=== PATIENT | female | born 1940 | race Caucasian/White ===

== ENCOUNTER 2018-12-21 09:07 | Emergency (ER) | payer OTHER, BC ==
[2018-12-21 09:13] VITALS: BMI 21.9
--- NOTE | 2018-12-21 09:27 | PDOC ---
History of Present Illness - General Chief Complaint: Nausea/Vomiting Stated Complaint: ABD PAIN/ VOMITING Time Seen by Provider: 12/21/18 09:22 - History of Present Illness Initial Comments: 12/21/18 10:41 78 year old woman with a history of HTN, cholecystectomy and recurrent vomiting who presents with abdominal pain 7x nbnb vomiting since yesterday at 1300. The patient reports she ate lunch, had abdominal pain then proceeded to vomit. She denies any diarrhea, fever, chest pain or shortness of breath. She admits to dysuria but denies any other symptoms. She complains of some weakness but otherwise has no other complaints. ROS GENERAL/CONSTITUTIONAL: No fever or chills. No weakness. CARDIOVASCULAR: No chest pain or shortness of breath RESPIRATORY: No cough, wheezing, or hemoptysis. GASTROINTESTINAL: + nausea, vomiting, No diarrhea or constipation. GENITOURINARY: + dysuria, frequency, or change in urination. MUSCULOSKELETAL: No joint or muscle swelling or pain. No neck or back pain. SKIN: No rash NEUROLOGIC: No headache, vertigo, loss of consciousness, or change in strength/ sensation. PE GENERAL: Awake, alert, and fully oriented, in no acute distress HEAD: No signs of trauma, normocephalic, atraumatic EYES: EOMI, sclera anicteric, conjunctiva clear ENT: oropharynx clear without exudates. Moist mucosa NECK: Normal ROM, supple LUNGS: No distress, speaks full sentences, clear to auscultation bilaterally HEART: Regular rate and rhythm, normal S1 and S2, no murmurs, rubs or gallops, peripheral pulses normal and equal bilaterally. ABDOMEN: Soft, nontender + slight volunatry guarding in lower quadrants, no rebound. No masses EXTREMITIES : Normal inspection, Normal range of motion, no edema. No clubbing or cyanosis. NEUROLOGICAL: Cranial nerves II through XII grossly intact. Normal speech,no focal sensorimotor deficits SKIN: Warm, Dry, normal turgor, no rashes or lesions noted MDM DDX including but not limited to: recurrent vomiting r/o pancreatits r/o cholelithiasis ED Course: labs largely wnl CTAP with mild fatty liver changes and with 3mm nodule in L lung patient informed of all lab results patient given GI referral and plan to f.u pcp f/u and d/c Matilde Correa, PGY2 Emergency Medicine Past History - Past Medical History Allergies/Adverse Reactions: Allergies Allergy/AdvReac Type Severity Reaction Status Date / Time No Known Allergies Allergy Verified 09/10/15 08:35 Home Medications: Ambulatory Orders Ondansetron [Zofran -] 4 mg PO BID #10 tablet 12/21/18 COPD: No GI Disorders: Yes (ACID REFLUX) HTN: Yes - Surgical History Cholecystectomy: Yes - Immunization History Immunization Up to Date: No - Psycho Social/Smoking Cessation Hx Smoking History: Never smoked Have you smoked in the past 12 months: No Information on smoking cessation initiated: No Hx Alcohol Use: No Drug/Substance Use Hx: No Substance Use Type: None *Physical Exam - Vital Signs Last Vital Signs Temp Pulse Resp BP Pulse Ox 98.0 F 82 16 161/80 100 12/21/18 09:10 12/21/18 09:10 12/21/18 09:10 12/21/18 09:10 12/21/18 09:10 ED Treatment Course - LABORATORY CBC & Chemistry Diagram: 12/21/18 10:00 12/21/18 10:00 Discharge - Discharge Information Problems reviewed: Yes Clinical Impression/Diagnosis: Gastritis, Vomiting Condition: Stable Disposition: HOME - Admission No - Additional Discharge Information Prescriptions: Ondansetron [Zofran -] 4 mg PO BID #10 tablet - Follow up/Referral Referrals: Suleiman Melendrez MD [Primary Care Provider] - Niels Ferrara MD [Staff Physician] - - Patient Discharge Instructions Patient Printed Discharge Instructions: DI for Abdominal Pain-Adult, DI for Vomiting -- Adult Additional Instructions: You were seen in the ER for complaints of vomiting Your labwork and imaging showed some fatty changes in the liver and a small 2mm nodule in the L lung You have a referral for GI and should follow up within 1 week. You should also follow up with your Family Doctor within 1 week. You have a prescription for Zofran and should take as prescribed. Return to the ED if you have worsening abdominal pain, nausea, vomiting, fever or any other concerning symptoms. - Post Discharge Activity
[2018-12-21] MEDS ORDERED: ONDANSETRON 4 MG/2 ML VIAL IVPUSH ONE (09:29)
[2018-12-21] MEDS ORDERED: SODIUM CHLORIDE 1,000 ML IV SCH (09:30)
[2018-12-21] MEDS ORDERED: ACETAMINOPHEN 1000 MG/100 ML VIAL (NON FORMULARY) IVPB ONE (09:47)
[2018-12-21] MEDS ORDERED: ONDANSETRON 4 MG/2 ML VIAL ONE (10:19)
[2018-12-21] MEDS ORDERED: ACETAMINOPHEN INJECTION 100 ML IVPB ONE (10:19)
[2018-12-21 10:23] LABS: BASO % 0.3 % (0-2.0); EOS % 0.1 % (0-4.5); HEMATOCRIT 39.4 % (32.4-45.2); HEMOGLOBIN 13.4 GM/dL (10.7-15.3); LYMPH % 14.5 % (8-40); MCH 30.7 pg (25.7-33.7); MEAN CELL VOLUME 90.3 fl (80-96); MEAN PLT VOLUME 8.5 fl (7.5-11.1); MONO % 4.8 % (3.8-10.2); NEUT % 80.3 % (42.8-82.8); PLATELET COUNT 444 K/MM3 (134-434); RBC 4.36 M/mm3 (3.60-5.2); RDW 15.2 % (11.6-15.6); WHITE BLOOD COUNT 10.1 K/mm3 (4.0-10.0)
--- NOTE | 2018-12-21 10:52 | PDOC ---
Documentation entered by Roopa Cruz SCRIBE, acting as scribe for Ayo March MD. Ayo March MD: This documentation has been prepared by the Anthony minaya Nirvannie, SCRIBE, under my direction and personally reviewed by me in its entirety. I confirm that the documentation accurately reflects all work, treatment, procedures, and medical decision making performed by me. Attending Attestation - Resident Resident Name: Matilde Correa - ED Attending Attestation I have performed the following: I have examined & evaluated the patient, The case was reviewed & discussed with the resident, I agree w/resident's findings & plan, Exceptions are as noted - HPI HPI: 12/21/18 10:15 The patient is a 78 year old female, with a significant past medical history of hypertension who presents to the emergency department with, 1 day of abdominal pain and vomiting. Pt states that after lunch yesterday, she began to feel very nauseous. She reports 7 episodes of nonbloody nonbilious emesis since then. Associated with epigastric pain. Denies diarrhea/constipation. Denies F/C. Pt notes she has had multiple similar episodes in the past. They occur every few months and can last days. Pt states she has seen doctors for this but has only been diagnosed with "excess gas". Does not follow with GI currently. Allergies: NKDA Past surgical history: Cholecystectomy 1990. - Physicial Exam PE: 12/21/18 10:15 GENERAL: Awake, alert, and fully oriented, in no acute distress. HEAD: No signs of trauma EYES: PERRLA, EOMI, sclera anicteric, conjunctiva clear ENT: Auricles normal inspection, hearing grossly normal, nares patent, oropharynx clear without exudates. Moist mucosa NECK: Nontender, no stepoffs, Normal ROM, supple, no lymphadenopathy, JVD, or masses LUNGS: Breath sounds equal, clear to auscultation bilaterally. No wheezes, and no crackles HEART: Regular rate and rhythm, normal S1 and S2, no murmurs, rubs or gallops ABDOMEN: + mild diffuse TTP, normoactive bowel sounds. No guarding, no rebound. No masses EXTREMITIES: Normal range of motion, no edema. No clubbing or cyanosis. No cords, erythema, or tenderness NEUROLOGICAL: Cranial nerves II through XII intact. 5/5 strength and sensation in all extremities, Normal speech, normal gait, normal cerebellar function SKIN: Warm, Dry, normal turgor, no rashes or lesions noted. - Medical Decision Making 12/21/18 10:54 78 F with diffuse abdominal pain, N+V. EKG with no ischemic changes. - Labs, lipase, lactate, trop - CTAP - IVF, zofran 12/21/18 16:[address] unremarkable Pt reassessed - feels significantly better with GI meds. Tolerating PO Pt is well appearing, with normal vitals. Clinically stable for DC at this time. I discussed the physical exam findings, ancillary test results and final diagnoses with the patient. I answered all of the patient's questions. The patient was satisfied with the care received and felt comfortable with the discharge plan and treatment plan. The patient agrees to follow up with the primary care physician within 24-72 hours.
[2018-12-21 11:01] LABS: MAGNESIUM 2.3 mg/dL (1.8-2.4); PHOSPHOROUS 3.4 mg/dL (2.5-4.9)
[2018-12-21 11:09] LABS: ALBUMIN 4.4 g/dl (3.4-5.0); ALK PHOS 132 U/L (45-117); ANION GAP 6 MMOL/L (8-16); BILIRUBIN,TOTAL 0.5 mg/dL (0.2-1); BLOOD UREA NITROGEN 14.6 mg/dL (7-18); CALCIUM 9.7 mg/dL (8.5-10.1); CHLORIDE 102 mmol/L (98-107); CO2 29 mmol/L (21-32); CREATININE 0.7 mg/dL (0.55-1.3); GLUCOSE,RANDOM 107 mg/dL (74-106); POTASSIUM 4.2 mmol/L (3.5-5.1); SGOT/AST 24 U/L (15-37); SGPT/ALT 19 U/L (13-61); SODIUM 137 mmol/L (136-145); TOT PROT 8.5 g/dl (6.4-8.2)
--- NOTE | 2018-12-21 12:37 | EKG ---
Test Reason : Blood Pressure : / mmHG Vent. Rate : 069 BPM Atrial Rate : 069 BPM P-R Int : 162 ms QRS Dur : 084 ms QT Int : 410 ms P-R-T Axes : 061 072 079 degrees QTc Int : 439 ms NORMAL SINUS RHYTHM NONSPECIFIC ST AND T WAVE ABNORMALITY ABNORMAL ECG WHEN COMPARED WITH ECG OF 10-SEP-2015 09:21, NONSPECIFIC T WAVE ABNORMALITY, WORSE IN ANTERIOR LEADS Confirmed by STEFANO CARBAJAL, CAROLINE ([id number]) on 12/21/2018 12:37:27 PM Referred By: Confirmed By:CAROLINE AGARWAL MD
[2018-12-21 12:38] LABS: PH,URINE >= 9.0 (5.0-8.0); URINE APPEARANCE CLEAR; URINE BILIRUBIN NEGATIVE (NEGATIVE); URINE COLOR YELLOW; URINE GLUCOSE (UA) NEGATIVE (NEGATIVE); URINE KETONE TRACE (NEGATIVE); URINE LEUK ESTERASE NEGATIVE (NEGATIVE); URINE NITRITE NEGATIVE (NEGATIVE); URINE PROTEIN NEGATIVE (NEGATIVE); URINE UROBILINOGEN 0.2 mg/dL (0.2-1.0)
[2018-12-21 14:54] VITALS: BP 151/85; PULSE 70; TEMP 98.3
== END 2018-12-21 16:33 | disposition home or self-care (01) ==
LOC: JER 09:07
PROC: 3E033NZ Introduction of Analgesics, Hypnotics, Sedatives into Peripheral Vein, Percutaneous Approach (ICD-10-PCS; principal; 2018-12-21)
PROC: 3E033GC Introduction of Other Therapeutic Substance into Peripheral Vein, Percutaneous Approach (ICD-10-PCS; 2018-12-21)
DX: K29.70 Gastritis, unspecified, without bleeding (principal); I10 Essential (primary) hypertension
CPT/HCPCS: 36415; 71045-TC-FY; 74177-TC; 80053; 81003; 82550; 83605; 83690; 83735; 84100; 84484; 85025; 87086; 93005; 93010; 99283-25; J0131; J7030

== ENCOUNTER 2018-12-22 10:16 | Emergency (ER) | payer OTHER, BC ==
[2018-12-22 10:32] VITALS: BMI 21.0
[2018-12-22] MEDS ORDERED: ONDANSETRON *ODT* 4 MG TABLET SL ONE (12:12)
[2018-12-22] MEDS ORDERED: ONDANSETRON *ODT* 4 MG TABLET ONE (12:23)
--- NOTE | 2018-12-22 12:23 | PDOC ---
History of Present Illness - General Chief Complaint: Pain Stated Complaint: ABD PAIN / VOMITTING Time Seen by Provider: 12/22/18 11:41 History Source: Patient Exam Limitations: No Limitations - History of Present Illness Initial Comments: 12/24/18 12:12 HPI: 78F PMH HTN who was in the [facility]ED yesterday for nausea and vomiting presenting again for continued nausea. 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 Had one episode of vomiting today and continued nausea. Denies worsening symptoms. Denies abd pain, chest pain, sob, f/c, urinary sx. Hx deena. No sick contacts. NKDA Past History - Past Medical History Allergies/Adverse Reactions: Allergies Allergy/AdvReac Type Severity Reaction Status Date / Time No Known Allergies Allergy Verified 12/22/18 10:20 Home Medications: Ambulatory Orders Ondansetron [Zofran -] 4 mg PO BID #10 tablet 12/21/18 Ondansetron [Zofran *Odt*] 4 mg SL BID #10 od.tablet 12/22/18 COPD: No GI Disorders: Yes (ACID REFLUX) HTN: Yes - Surgical History Cholecystectomy: Yes - Reproductive History Is Patient Now?: No - Immunization History Immunization Up to Date: No - Psycho Social/Smoking Cessation Hx Smoking History: Never smoked Have you smoked in the past 12 months: No Information on smoking cessation initiated: No Hx Alcohol Use: No Drug/Substance Use Hx: No Substance Use Type: None Review of Systems - Review of Systems Able to Perform ROS?: Yes Comments:: 12/24/18 12:13 ROS: CONSTITUTIONAL: Denies F / C RESP: Denies SOB, cough, orthopnea, KAUR CARD: Denies chest pain GI: Endorses N / V, inability to tolerate PO. Denies abdominal pain, bloody stool : Denies dysuria, frequency SKIN: Denies rashes Is the patient limited Divehi proficient: No *Physical Exam - Vital Signs Last Vital Signs Temp Pulse Resp BP Pulse Ox 98.1 F 79 16 134/52 L 96 12/22/18 10:20 12/22/18 10:20 12/22/18 10:20 12/22/18 10:20 12/22/18 10:20 - Physical Exam Comments: 11/17/19 12:13 PE: GEN: Well appearing, NAD, comfortable. AAOx3 HEENT: NC/AT, EOMI, PERRLA. No facial asymmetry. Moist mucous membranes. Normal voice. Supple neck w/ FROM. CV: S1/S2, RRR, no m/r/g LUNG: CTAB, no wheezes, crackles, rales, rhonchi. GI: soft, ndnt, +BS, no guarding, no rebound. No masses. Neg CVAT b/l. EXTREMITIES: 2+ distal pulses. No LE edema. No obvious deformities of all extremities. SKIN: warm, dry, normal turgor PSYCH: normal mood and affect NEURO: Moving all extremities well. 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 - EKG - Zofran - PO challenge EKG HR 71 CT 156 QRS 84 QTc 434; non-prolonged QTc; NSR, TWI V3 12/22/18 14:13 tolerated PO well labs reviewed dc home w/ f/u and zofran Discharge - Discharge Information Problems reviewed: Yes Clinical Impression/Diagnosis: Nausea Disposition: HOME - Additional Discharge Information Prescriptions: Ondansetron [Zofran *Odt*] 4 mg SL BID #10 od.tablet - Follow up/Referral Referrals: Suleiman Melendrez MD [Primary Care Provider] - - Patient Discharge Instructions Patient Printed Discharge Instructions: Nausea and Vomiting-Adult Additional Instructions: Please use the Zofran as needed every 4-6 hours for nausea/ vomiting. Please see your primary care physician within one week. Please return to the ED if you have any new or worsening symptoms. Print Language: FAROESE - Post Discharge Activity
--- NOTE | 2018-12-22 12:55 | PDOC ---
Documentation entered by Yary Bermudez SCRIBE, acting as scribe for Pardeep Napoles MD. Pardeep Napoles MD: This documentation has been prepared by the Lara minaya Xhesika, SCRIBE, under my direction and personally reviewed by me in its entirety. I confirm that the documentation accurately reflects all work, treatment, procedures, and medical decision making performed by me. Attending Attestation - Resident Resident Name: DutchRyley - ED Attending Attestation I have performed the following: I have examined & evaluated the patient, The case was reviewed & discussed with the resident, I agree w/resident's findings & plan, Exceptions are as noted - HPI HPI: 12/22/18 12:53 The patient is a 78 year old female, with a significant past medical history of hypertension who presents to the emergency department with continued nausea. Pt was seen here in the ED yesterday (12/21/18) for nausea and vomiting, was discharged home with zofran sent to her pharmacy. Pt notes the pharmacy was closed and was unable to order picker her medication, promoting her arrival to the ED today. The patient denies shortness of breath, headache and dizziness. Denies fever, chills, cough, vomiting, diarrhea and constipation. Denies dysuria, frequency, urgency and hematuria. Allergies: NKDA Past surgical history: Cholecystectomy 1990. Social Hx: Denies current smoking, drinking, or other substance usage - Physicial Exam PE: 12/22/18 12:54 Vitals: Triage Vital signs reviewed General Appearance: no acute distress, well nourished well developed, Neck: Supple;No Nuchal rigidity Chest Wall: Nontender Cardiac: Regular rate and rhythm, no murmurs, no rubs, no gallops, Lungs: Clear to auscultation bilateral, good air movement bilaterally, Abdomen: Soft, nondistended, normal bowel sounds, nontender to palpation Extremities: Full range of motion to all extremities, no cyanosis, clubbing, or edema Skin: Warm and dry, no rashes or lesions, no petechiae Psych: normal mood, normal affect 12/22/18 14:02 - Medical Decision Making 12/22/18 14:02 Well-appearing no apparent distress presented to the ED yesterday with some abdominal discomfort nausea vomiting was prescribed Zofran but did not fill prescription had additional few episodes of emesis and return to the emergency department she is currently symptom-free asking to eat her nausea has resolved she is eating ice chips at the bedside her labs were checked there were no significant changes from yesterday to today her CAT scan from yesterday was reviewed there are no worrisome findings her abdominal examination is benign there is no acute rebound guarding or tenderness to palpation We will discharge home with prescription for Zofran with strict return instructions Findings, the need for follow-up and strict return instructions discussed with patient.
[2018-12-22 13:31] LABS: BASO % 0.7 % (0-2.0); EOS % 0.2 % (0-4.5); HEMATOCRIT 39.5 % (32.4-45.2); HEMOGLOBIN 13.2 GM/dL (10.7-15.3); LYMPH % 22.5 % (8-40); MCH 30.6 pg (25.7-33.7); MCHC 33.4 g/dl (32.0-36.0); MEAN CELL VOLUME 91.6 fl (80-96); MEAN PLT VOLUME 8.3 fl (7.5-11.1); MONO % 4.2 % (3.8-10.2); NEUT % 72.4 % (42.8-82.8); PLATELET COUNT 398 K/MM3 (134-434); RBC 4.31 M/mm3 (3.60-5.2); WHITE BLOOD COUNT 11.5 K/mm3 (4.0-10.0)
[2018-12-22 13:57] LABS: ALBUMIN 4.1 g/dl (3.4-5.0); BILIRUBIN,TOTAL 0.4 mg/dL (0.2-1); BLOOD UREA NITROGEN 12.3 mg/dL (7-18); CALCIUM 9.5 mg/dL (8.5-10.1); CREATININE 0.6 mg/dL (0.55-1.3); POTASSIUM 3.5 mmol/L (3.5-5.1)
[2018-12-22 14:05] VITALS: BP 126/70; PULSE 73; TEMP 98.4
--- NOTE | 2018-12-24 20:26 | EKG ---
Test Reason : Blood Pressure : / mmHG Vent. Rate : 071 BPM Atrial Rate : 071 BPM P-R Int : 156 ms QRS Dur : 084 ms QT Int : 400 ms P-R-T Axes : 054 068 064 degrees QTc Int : 434 ms NORMAL SINUS RHYTHM NONSPECIFIC ST AND T WAVE ABNORMALITY ABNORMAL ECG WHEN COMPARED WITH ECG OF 21-DEC-2018 10:19, NO SIGNIFICANT CHANGE WAS FOUND Confirmed by NAZIA GALLAGHER MD ([id number]) on 12/24/2018 8:26:06 PM Referred By: Confirmed By:NAZIA GALLAGHER MD
== END 2018-12-22 14:25 | disposition home or self-care (01) ==
LOC: JER 10:16
DX: R11.0 Nausea (principal); K21.9 Gastro-esophageal reflux disease without esophagitis; I10 Essential (primary) hypertension
CPT/HCPCS: 36415; 80053; 82150; 83690; 85025; 93005; 93010; 99284-25; Q0162

== ENCOUNTER 2019-03-15 06:05 | Day surgery (SDC) | payer OTHER, BC ==
[2019-03-13 16:59] VITALS: BMI 21.7
[2019-03-15] MEDS ORDERED: LIDOCAINE HCL 1%, 10 MG/ML (20ML VIAL) ONE ×2 (07:10→08:26)
[2019-03-15] MEDS ORDERED: EPHEDRINE SULFATE/0.9% NACL/PF 50 MG/10 ML SYRINGE NR ONE (07:27)
[2019-03-15] MEDS ORDERED: PROPOFOL 20 ML ONE ×3 (07:27→07:30)
[2019-03-15] MEDS ORDERED: ROCURONIUM BROMIDE 50 MG/5 ML SYRINGE ONE (07:28)
[2019-03-15] MEDS ORDERED: SUCCINYLCHOLINE CHLORIDE 200 MG/10 ML SYRINGE ONE (07:28)
[2019-03-15] MEDS ORDERED: MIDAZOLAM HCL 2 MG/2 ML SINGLE DOSE VIAL ONE (07:40)
[2019-03-15] MEDS ORDERED: ceFAZolin SODIUM 1 GM VIAL IVPB ONE (07:45)
[2019-03-15] MEDS ORDERED: LIDOCAINE HCL 1%, 10 MG/ML (20ML VIAL) INF ONE ×2 (07:58)
[2019-03-15] MEDS ORDERED: BACITRACIN 50,000 UNITS VIAL TP ONE (08:05)
[2019-03-15] MEDS ORDERED: oxyCODONE HCL 5 MG TABLET PO PRN (08:50)
--- NOTE | 2019-03-15 08:51 | OP ---
Operative Note - Note: Operative Date: 03/15/19 Pre-Operative Diagnosis: OAB Operation: Interstim Post-Operative Diagnosis: Same as Pre-op Surgeon: Rg Stewart Anesthesia: General Estimated Blood Loss (mls): 2 Operative Report Dictated: Yes
[2019-03-15] MEDS ORDERED: DEXTROSE 5%-0.45% SALINE 1,000 ML IV SCH (09:00)
[2019-03-15] MEDS ORDERED: LACTATED RINGERS SOLUTION 1,000 ML IV SCH (09:30)
--- NOTE | 2019-03-15 10:36 | OP ---
DATE OF OPERATION: 03/15/2019 PREOPERATIVE DIAGNOSIS: Overactive bladder. POSTOPERATIVE DIAGNOSIS: Overactive bladder. PROCEDURE: Full InterStim implant. SURGEON: Surendra Ordaz MD INDICATION: Patient is a 78-year-old female with urinary frequency, urgency, urge incontinence, overactive bladder failed multiple therapies. Had an InterStim P and E trial in the office with excellent success and especially with right-sided electrode, so patient taken to OR today for full InterStim implant. DESCRIPTION OF PROCEDURE: Patient taken to the OR, placed prone on the operating table. Cardiac monitoring was administered. She was given 1 of Ancef and then the lower back and sacrum were prepped and draped in a standard surgical fashion. Using active fluoroscopy, S3 foramen was identified, and a needle was placed in the S3 foramen. This was then stimulated and appropriate motor and sensory responses were obtained. The wire was placed through the needle, the needle removed, and over the wire, a trocar was placed into the S3 foramen, and this was confirmed with fluoroscopy. The electrode was then placed through the sheath and the sheath removed. All 4 channels of the electrode were tested, and appropriate motor and sensory responses were obtained. Now with the electrode in the proper position with the proper responses, attention was turned to placement for the battery pack into the right max buttock. A small incision was created level to the S3 foramen on the patient's right max buttock and then a pocket was created above the gluteal muscle. The electrode was then transferred from the insertion site to the pocket in the buttock subcutaneously and then attached to the battery pack. The battery was then placed into the buttock space, and the battery was tested and interrogated, and it was successful. Attention was turned to wound closure. The buttock space was then closed with the interrupted chromic followed by Monocryl for subcutaneous and Dermabond and then the original needle insertion site was closed with Dermabond. Dry, sterile dressings were placed. The patient was awoken from anesthesia, transferred to recovery room in stable condition. There were no complications. Estimated blood loss was minimal. SURENDRA ORDAZ M.D. [id number]
[2019-03-15] MEDS ORDERED: ONDANSETRON 4 MG/2 ML VIAL ONE (11:01)
[2019-03-15 12:36] VITALS: BP 154/71; PULSE 62; TEMP 98.1
== END 2019-03-15 12:20 | disposition home or self-care (01) ==
LOC: JASU-SURG 06:05
PROVIDERS: ATTEND Urology
PROC: 01HY0MZ Insertion of Neurostimulator Lead into Peripheral Nerve, Open Approach (ICD-10-PCS; 2019-03-15)
PROC: 0JH70MZ Insertion of Stimulator Generator into Back Subcutaneous Tissue and Fascia, Open Approach (ICD-10-PCS; principal; 2019-03-15 07:30)
DX: N32.81 Overactive bladder (principal); N39.41 Urge incontinence
CPT/HCPCS: 64581; 64590; C1778; L8679; 76000-TC-FY; 94760

== ENCOUNTER 2019-09-08 13:36 | Emergency (ER) | payer OTHER, BC ==
[2019-09-08] MEDS ORDERED: FAMOTIDINE 20 MG/50 ML IVPB 20 MG/50 ML MG IVPB ONE ×2 (13:40→15:39)
[2019-09-08] MEDS ORDERED: SODIUM CHLORIDE 1,000 ML IV STA (13:40)
--- NOTE | 2019-09-08 13:40 | PDOC ---
Rapid Medical Evaluation Time Seen by Provider: 09/08/19 13:37 Medical Evaluation: Allergies Allergy/AdvReac Type Severity Reaction Status Date / Time No Known Allergies Allergy Verified 09/07/19 18:26 09/08/19 13:37 I performed a brief in-person evaluation of this patient. Pt is a 79 y/o female who presents to the ED with complaint of vomiting since yesterday. She vomiting 5 times yesterday and twice today. She admits to significant epigastric abdominal pain. She has a history of HTN. Pertinent physical exam findings: Moderate distress, + epigastric abd pain to palp, no cva tenderness I have ordered the following: saline lock, labs, fluids, zofran Patient to proceed to ED for further evaluation. Discharge Disposition - Diagnosis Epigastric pain - Referrals - Patient Instructions - Post Discharge Activity
[2019-09-08] MEDS ORDERED: ONDANSETRON 4 MG/2 ML VIAL IVPUSH ONE (13:41)
[2019-09-08 13:48] VITALS: TEMP 98.3; BMI 21.9
[2019-09-08] MEDS ORDERED: MAG HYDROX/AL HYDROX/SIMETH 30 ML UNIT-DOSE CUP PO ONE (13:52)
--- NOTE | 2019-09-08 13:53 | PDOC ---
History of Present Illness <Rani Blake - Last Filed: 09/08/19 18:34> - History of Present Illness Initial Comments: 79y/o F hx of acid reflux, urinary incontinence, cholecystectomy,presents back to the ED with 2 day of epigastric pain. Pt reports non-radiating burning pain, worse with positional change, better when she lays down flat. Didn't take any medication for the epigastric pain. According to her, after she was discharge, she was still having epigastric pain at 2am. Then at 6 am, she had epigastric pain, and some chest pain. Pain come and go, sharp in nature. Patient has had associated nausea, and 2 episodes of NBNB emesis. Last bowel movement was normal yesterday. She denies any chest pain, fevers, chills, cough, dysuria, hematuria, flank pain, diarrhea, blood per rectum. She endorses mild SOB PMHx: as noted above ROS: as noted SHx: Denies Etoh, IVDA, tobacco use Allergies: NKDA Med: none ROS: GENERAL/CONSTITUTIONAL: No fever or chills. No weakness. HEAD, EYES, EARS, NOSE AND THROAT: No change in vision. No ear pain or discharge. No sore throat. CARDIOVASCULAR: No chest pain. +shortness of breath RESPIRATORY: No cough, wheezing, or hemoptysis. GASTROINTESTINAL: + nausea, vomiting, no diarrhea or constipation. +epigastric pain. GENITOURINARY: No dysuria, frequency, or change in urination. MUSCULOSKELETAL: No joint or muscle swelling or pain. No neck or back pain. SKIN: No rash NEUROLOGIC: No headache, vertigo, loss of consciousness, or change in strength/sensation. ENDOCRINE: No increased thirst. No abnormal weight change HEMATOLOGIC/LYMPHATIC: No anemia, easy bleeding, or history of blood clots. ALLERGIC/IMMUNOLOGIC: No hives or skin allergy. PE: GENERAL: Awake, alert, and fully oriented, in no acute distress HEAD: No signs of trauma, normocephalic, atraumatic EYES: PERRLA, EOMI, sclera anicteric, conjunctiva clear ENT: Auricles normal inspection, hearing grossly normal, nares patent, oropharynx clear without exudates. Moist mucosa NECK: Normal ROM, supple, no lymphadenopathy, JVD, or masses LUNGS: No distress, speaks full sentences, clear to auscultation bilaterally HEART: Regular rate and rhythm, normal S1 and S2, no murmurs, rubs or gallops, peripheral pulses normal and equal bilaterally. ABDOMEN: Soft, tender in epigastrium , normoactive bowel sounds. No guarding, no rebound. No masses. no cva tenderness. EXTREMITIES : Normal inspection, Normal range of motion, no edema. No clubbing or cyanosis NEUROLOGICAL: Cranial nerves II through XII grossly intact. Normal speech, normal gait, no focal sensorimotor deficits SKIN: Warm, Dry, normal turgor, no rashes or lesions noted 09/08/19 14:07 <Missael Kearney - Last Filed: 09/08/19 18:42> - General Chief Complaint: Pain Stated Complaint: ABD. PAIN Time Seen by Provider: 09/08/19 13:37 Past History <Rani Blake - Last Filed: 09/08/19 18:34> - Medical History Cancer: No Cardiac Disorders: No CVA: No COPD: No CHF: No Dementia: No Diabetes: No GI Disorders: Yes (ACID REFLUX) Disorders: No HTN: Yes (no medication currently) Hypercholesterolemia: No Liver Disease: No Seizures: No Thyroid Disease: No - Surgical History Abdominal Surgery: No Appendectomy: No Cardiac Surgery: No Cholecystectomy: Yes Lung Surgery: No Neurologic Surgery: No Orthopedic Surgery: No - Immunization History Immunization Up to Date: No - Psycho-Social/Smoking History Smoking History: Never smoked Have you smoked in the past 12 months: No - Substance Abuse Hx (Audit-C & DAST Scrn) How often the patient has a drink containing alcohol: Never Score: In Men: 4 or > Positive; In Women: 3 or > Positive: 0 Screen Result (Pos requires Nsg. Audit-10AR): Negative In the last yr the pt used illegal drug/Rx for NonMed reason: No Score: Yes response is considered Positive: 0 Screen Result (Positive result requires Nsg. DAST-10): Negative <Missael Kearney - Last Filed: 09/08/19 18:42> - Medical History Allergies/Adverse Reactions: Allergies Allergy/AdvReac Type Severity Reaction Status Date / Time No Known Allergies Allergy Verified 09/08/19 13:48 Home Medications: Ambulatory Orders Ropinirole HCl 0.25 mg PO DAILY 02/06/20 Famotidine [Pepcid -] 20 mg PO BID #28 tablet 09/08/19 Metoclopramide HCl [Reglan -] 10 mg PO TID PRN #12 tablet 09/08/19 *Physical Exam - Vital Signs Last Vital Signs Temp Pulse Resp BP Pulse Ox 98.3 F 84 16 174/72 H 100 09/08/19 13:45 09/08/19 13:45 09/08/19 16:29 09/08/19 13:45 09/08/19 16:29 <Rani Blake - Last Filed: 09/08/19 18:34> - Vital Signs Last Vital Signs Temp Pulse Resp BP Pulse Ox 98.3 F 84 16 174/72 H 100 09/08/19 13:45 09/08/19 13:45 09/08/19 13:45 09/08/19 13:45 09/08/19 13:45 <Missael Kearney - Last Filed: 09/08/19 18:42> ED Treatment Course - LABORATORY CBC & Chemistry Diagram: 09/08/19 14:00 09/08/19 14:00 - ADDITIONAL ORDERS Additional order review: Laboratory Results 09/08/19 09/08/19 09/08/19 15:29 14:00 14:00 Sodium 136 Potassium 3.7 Chloride 104 Carbon Dioxide 27 Anion Gap 6 L BUN 15.4 Creatinine 0.7 Est GFR (CKD-EPI)AfAm 96.86 Est GFR (CKD-EPI)NonAf 83.57 Random Glucose 123 H Lactic Acid 1.8 Calcium 9.4 Total Bilirubin 0.7 AST 29 ALT 16 Alkaline Phosphatase 123 H Creatine Kinase 114 Troponin I 0.05 Total Protein 8.4 H Albumin 4.1 Lipase 96 Urine Color Yellow Urine Appearance Clear Urine pH 8.0 D Ur Specific Radiant 1.012 Urine Protein Negative Urine Glucose (UA) Negative Urine Ketones 1+ H Urine Blood Trace Urine Nitrite Negative Urine Bilirubin Negative Urine Urobilinogen 0.2 Ur Leukocyte Esterase Negative Urine WBC (Auto) 4 Urine RBC (Auto) 15 Urine Casts (Auto) 0 U Epithel Cells (Auto) 8 Urine Bacteria (Auto) 13 09/08/19 14:00 RBC 4.33 MCV 89.5 MCHC 33.3 RDW 15.6 MPV 8.7 Neutrophils % 79.1 Lymphocytes % 13.1 Monocytes % 7.4 D Eosinophils % 0.1 Basophils % 0.3 - RADIOLOGY Radiology Studies Ordered: Category Date Time Status ABDOMEN & PELVIS CT WITH CONTR [CT] Stat CT Scan 09/08/19 14:08 Completed - Medications Given in the ED: ED Medications Discontinued Medications Generic Name Dose Route Start Last Admin Trade Name Adwoa PRN Reason Stop Dose Admin Acetaminophen 1,000 mg 09/08/19 14:08 09/08/19 14:20 Ofirmev Injection - IVPB 09/08/19 14:09 1,000 mg ONCE ONE Administration Al Hydroxide/Mg Hydroxide 30 ml 09/08/19 13:52 09/08/19 14:20 Mylanta Oral Suspension - PO 09/08/19 13:53 30 ml ONCE ONE Administration Sodium Chloride 1,000 mls @ 1,000 mls/hr 09/08/19 13:40 09/08/19 14:20 Normal Saline - IV 09/08/19 14:39 1,000 mls/hr ASDIR STA Administration Famotidine/Sodium Chloride 20 mg in 50 mls @ 100 mls/hr 09/08/19 13:40 09/08/19 15:42 Pepcid 20 Mg Premixed Ivpb - IVPB 09/08/19 14:09 100 mls/hr ONCE ONE Administration Ondansetron HCl 4 mg 09/08/19 13:41 09/08/19 14:20 Zofran Injection IVPUSH 09/08/19 13:42 4 mg ONCE ONE Administration <Rani Blake - Last Filed: 09/08/19 18:34> - LABORATORY CBC & Chemistry Diagram: 09/08/19 14:00 09/08/19 14:00 <Missael Kearney - Last Filed: 09/08/19 18:42> Medical Decision Making - Medical Decision Making 09/08/19 14:12 EKG: vent rate, 79, normal sinus rthym, border line ST increase in lead V1, V2. Compared to the previous EKG. Awating for troponin value 09/08/19 14:23 Med: GI cocktails: tylenool, maalox, fanmotiddine, fluid. CBC, CMP, lipase, lactate , trop 09/08/19 16:30 Lab came back essentially normal. Trop 0.05, UA: neg , Liver enzymes are normal. Just came back from CT scan, awaiting result. Patient felt improved from the abdominal pain after meds. 09/08/19 16:32 09/08/19 17:04 CT scan essentially is normal. No sign of emergent concern. Labs are negative. Patient felt better after Meds. PO challange : failed, will order reglan and fluid. Patient felt better after reglan. Plans to follow up with PCP for GERDS. Will prescribe Regland, and pepsin to go home. 09/08/19 17:19 09/08/19 17:27 09/08/19 18:38 <Missael Kearney - Last Filed: 09/08/19 18:42> Discharge - Discharge Information Problems reviewed: Yes - Admission No <Rani Blake - Last Filed: 09/08/19 18:34> <Missael Kearney - Last Filed: 09/08/19 18:42> - Discharge Information Clinical Impression/Diagnosis: Epigastric pain Condition: Improved Disposition: HOME - Additional Discharge Information Prescriptions: Famotidine [Pepcid -] 20 mg PO BID #28 tablet Metoclopramide HCl [Reglan -] 10 mg PO TID PRN #12 tablet PRN Reason: Nausea / Vomiting - Follow up/Referral Referrals: Suleiman Melendrez MD [Primary Care Provider] - - Patient Discharge Instructions Patient Printed Discharge Instructions: DI for Gastroesophageal Reflux Disease (GERD), DI for Abdominal Pain-Adult, GERD Diet Additional Instructions: Follow up with your primary care doctor within 3 days regarding your ED visit. Your care is not complete until you follow up. I have prescribed you pepcid for your stomach acid, take as advised on label. I have prescribed you Reglan, an anti-nausea medication, take as advised on label as needed. Follow the GERD diet - I have included information on foods that aggravate acid reflux. Do not eat - alcohol, tomatoes, fried food, fatty food, red sauce, pizza, sinhala fries, coffee, tea, hamburgers. Return to the ER for increasing pain, chest pain, shortness of breath, vomiting, lightheadedness, passing out, blood in vomit, or any other new, worsening or concerning symptoms. - Post Discharge Activity
[2019-09-08] MEDS ORDERED: ACETAMINOPHEN 1000 MG/100 ML VIAL (NON FORMULARY) IVPB ONE (14:08)
[2019-09-08] MEDS ORDERED: MAG HYDROX/AL HYDROX/SIMETH 30 ML UNIT-DOSE CUP ONE (14:12)
[2019-09-08] MEDS ORDERED: ACETAMINOPHEN INJECTION 100 ML IVPB ONE (14:12)
[2019-09-08 14:41] LABS: BASO % 0.3 % (0-2.0); EOS % 0.1 % (0-4.5); HEMATOCRIT 38.8 % (32.4-45.2); HEMOGLOBIN 12.9 GM/dL (10.7-15.3); LYMPH % 13.1 % (8-40); MCH 29.8 pg (25.7-33.7); MCHC 33.3 g/dl (32.0-36.0); MEAN CELL VOLUME 89.5 fl (80-96); MEAN PLT VOLUME 8.7 fl (7.5-11.1); MONO % 7.4 % (3.8-10.2); NEUT % 79.1 % (42.8-82.8); PLATELET COUNT 378 K/MM3 (134-434); RBC 4.33 M/mm3 (3.60-5.2); RDW 15.6 % (11.6-15.6); WHITE BLOOD COUNT 12.5 K/mm3 (4.0-10.0)
[2019-09-08 15:13] LABS: ALBUMIN 4.1 g/dl (3.4-5.0); BILIRUBIN,TOTAL 0.7 mg/dL (0.2-1); BLOOD UREA NITROGEN 15.4 mg/dL (7-18); CALCIUM 9.4 mg/dL (8.5-10.1); CREATININE 0.7 mg/dL (0.55-1.3); POTASSIUM 3.7 mmol/L (3.5-5.1); TOT PROT 8.4 g/dl (6.4-8.2)
--- NOTE | 2019-09-08 15:48 | PDOC ---
Documentation entered by Bladimir Melendez SCRIBE, acting as scribe for Ayo March MD. Ayo March MD: This documentation has been prepared by the Al minaya Aaron, SCRIBE, under my direction and personally reviewed by me in its entirety. I confirm that the documentation accurately reflects all work, treatment, procedures, and medical decision making performed by me. Attending Attestation - Resident Resident Name: Missael Kearney - ED Attending Attestation I have performed the following: I have examined & evaluated the patient, The case was reviewed & discussed with the resident, I agree w/resident's findings & plan, Exceptions are as noted - HPI HPI: 09/08/19 15:10 The patient is a 79 year old female with a significant PMH of acid reflux, urinary incontinence, and cholecystectomy who presents to the emergency department with two days of epigastric pain. Patient reports that pain began after discharge from the ED yesterday. At 6 am this morning, patient had recurrence of the pain followed by 2 ep of emesis. Patient describes pain as intermittent and sharp. Patient denies any other symptoms. Allergies: NKDA Past surgical history: cholecystectomy PCP: Suleiman Melendrez MD 09/08/19 15:48 - Physicial Exam PE: 09/08/19 15:49 See resident exam - Medical Decision Making 09/08/19 15:49 79 F with abdominal pain + vomiting. - Labs - CTAP - GI cocktail Labs wnl CT unremarkable Pt tolerating PO, pain resolved Pt is well appearing, with normal vitals. Clinically stable for DC at this time. I discussed the physical exam findings, ancillary test results and final diagnoses with the patient. I answered all of the patient's questions. The patient was satisfied with the care received and felt comfortable with the discharge plan and treatment plan. The patient agrees to follow up with the primary care physician within 24-72 hours. Discharge - Discharge Information Problems reviewed: Yes Clinical Impression/Diagnosis: Epigastric pain Condition: Improved Disposition: HOME - Additional Discharge Information Prescriptions: Famotidine [Pepcid -] 20 mg PO BID #28 tablet Metoclopramide HCl [Reglan -] 10 mg PO TID PRN #12 tablet PRN Reason: Nausea / Vomiting - Follow up/Referral Referrals: Suleiman Melenderz MD [Primary Care Provider] - - Patient Discharge Instructions Patient Printed Discharge Instructions: DI for Gastroesophageal Reflux Disease (GERD), DI for Abdominal Pain-Adult, GERD Diet Additional Instructions: Follow up with your primary care doctor within 3 days regarding your ED visit. Your care is not complete until you follow up. I have prescribed you pepcid for your stomach acid, take as advised on label. I have prescribed you Reglan, an anti-nausea medication, take as advised on label as needed. Follow the GERD diet - I have included information on foods that aggravate acid reflux. Do not eat - alcohol, tomatoes, fried food, fatty food, red sauce, pizza, english fries, coffee, tea, hamburgers. Return to the ER for increasing pain, chest pain, shortness of breath, vomiting, lightheadedness, passing out, blood in vomit, or any other new, worsening or concerning symptoms. - Post Discharge Activity
[2019-09-08 16:17] LABS: EPI CELLS 8 /uL (0-25.1); HYALINE CASTS 0 /uL (0-3.1); URINE APPEARANCE CLEAR; URINE BACTERIA 13 /uL (0-1359); URINE BILIRUBIN NEGATIVE (NEGATIVE); URINE COLOR YELLOW; URINE GLUCOSE (UA) NEGATIVE (NEGATIVE); URINE KETONE 1+ (NEGATIVE); URINE LEUK ESTERASE NEGATIVE (NEGATIVE); URINE NITRITE NEGATIVE (NEGATIVE); URINE PROTEIN NEGATIVE (NEGATIVE); URINE RBC 15 /uL (0-23.9); URINE UROBILINOGEN 0.2 mg/dL (0.2-1.0); URINE WBC 4 /uL (0-25.8)
[2019-09-08] MEDS ORDERED: METOCLOPRAMIDE HCL INJECTION 10 MG/2 ML VIAL IVPUSH ONE (17:24)
[2019-09-08] MEDS ORDERED: SODIUM CHLORIDE 0.9% 500 ML INFUS.BAG IV ONE (17:27)
[2019-09-08] MEDS ORDERED: METOCLOPRAMIDE HCL INJECTION 10 MG/2 ML VIAL ONE (17:37)
[2019-09-08 17:45] VITALS: PULSE 70
[2019-09-08 19:10] VITALS: BP 174/83
--- NOTE | 2019-09-10 10:06 | EKG ---
Test Reason : Blood Pressure : / mmHG Vent. Rate : 081 BPM Atrial Rate : 081 BPM P-R Int : 138 ms QRS Dur : 082 ms QT Int : 424 ms P-R-T Axes : 041 073 019 degrees QTc Int : 492 ms POOR DATA QUALITY, INTERPRETATION MAY BE ADVERSELY AFFECTED NORMAL SINUS RHYTHM NONSPECIFIC ST AND T WAVE ABNORMALITY ,consider ischemia ABNORMAL ECG WHEN COMPARED WITH ECG OF 08-SEP-2019 13:58, NONSPECIFIC T WAVE ABNORMALITY NOW EVIDENT IN INFERIOR LEADS Confirmed by Merle Gunn ([id number]) on 09/10/2019 10:05:54 AM Referred By: Confirmed By:Merle Gunn
--- NOTE | 2019-09-10 10:09 | EKG ---
Test Reason : Blood Pressure : / mmHG Vent. Rate : 079 BPM Atrial Rate : 079 BPM P-R Int : 144 ms QRS Dur : 088 ms QT Int : 394 ms P-R-T Axes : 059 078 079 degrees QTc Int : 451 ms NORMAL SINUS RHYTHM ABNORMAL ECG WHEN COMPARED WITH ECG OF 07-SEP-2019 18:18, NO SIGNIFICANT CHANGE WAS FOUND Confirmed by Merle Gunn ([id number]) on 09/10/2019 10:08:43 AM Referred By: Confirmed By:Merle Gunn
== END 2019-09-08 19:10 | disposition home or self-care (01) ==
LOC: JER 13:36
PROC: 3E033NZ Introduction of Analgesics, Hypnotics, Sedatives into Peripheral Vein, Percutaneous Approach (ICD-10-PCS; principal; 2019-09-08)
PROC: 3E033GC Introduction of Other Therapeutic Substance into Peripheral Vein, Percutaneous Approach (ICD-10-PCS; 2019-09-08)
PROC: 3E0337Z Introduction of Electrolytic and Water Balance Substance into Peripheral Vein, Percutaneous Approach (ICD-10-PCS; 2019-09-08)
DX: R10.13 Epigastric pain (principal)
CPT/HCPCS: 36415; 74177-TC; 80053; 81003; 82550; 83605; 83690; 84484; 85025; 87086; 87186; 93005; 93010; 99285-25; J0131; Q9967

== ENCOUNTER 2021-09-10 18:04 | Emergency (ER) | payer OTHER, BC ==
[2021-09-10 18:19] VITALS: TEMP 98.5; BMI 22.6
[2021-09-10] MEDS ORDERED: SODIUM CHLORIDE 1,000 ML IV SCH (18:30)
[2021-09-10 19:24] LABS: BASO % 0.2 % (0-2.0); HEMATOCRIT 35.1 % (32.4-45.2); HEMOGLOBIN 11.8 GM/dL (10.7-15.3); LYMPH % 7.6 % (8-40); MCH 29.8 pg (25.7-33.7); MCHC 33.6 g/dl (32.0-36.0); MEAN CELL VOLUME 88.8 fl (80-96); MEAN PLT VOLUME 8.3 fl (7.5-11.1); MONO % 7.3 % (3.8-10.2); NEUT % 84.9 % (42.8-82.8); PLATELET COUNT 348 10^3/uL (134-434); RBC 3.95 M/mm3 (3.60-5.2); RDW 14.7 % (11.6-15.6)
[2021-09-10 19:44] LABS: INR 1.13 (0.83-1.09)
[2021-09-10 19:47] LABS: ACTIVATED PTT 34.7 SECONDS (25.2-36.5); CALCIUM 9.3 mg/dL (8.5-10.1)
[2021-09-10 19:50] LABS: BLOOD UREA NITROGEN 24.1 mg/dL (7-18)
[2021-09-10 19:51] LABS: CREATININE 0.7 mg/dL (0.55-1.3)
[2021-09-10 19:53] LABS: TOT PROT 8.1 g/dl (6.4-8.2)
[2021-09-10 19:54] LABS: BILIRUBIN,TOTAL 0.6 mg/dL (0.2-1)
[2021-09-11 05:07] VITALS: BP 170/99; PULSE 73; RESP 22
== END 2021-09-10 21:02 | disposition short-term general hospital (02) ==
LOC: JER 18:04
DX: I69.314 Frontal lobe and executive function deficit following cerebral infarction (principal); W01.0XXA Fall on same level from slipping, tripping and stumbling without subsequent striking against object, initial encounter
CPT/HCPCS: 36415; 70450-TC; 70496-TC; 80053; 80061; 82550; 82553; 82962; 83036; 84484; 85025; 85610; 85730; 86850; 86900; 86901; 93005; 93010; 99285-25; C9803-CS; Q9967; U0003; U0005